=== PATIENT | male | born 1980 | race Caucasian/White ===

== ENCOUNTER 2017-02-11 22:13 | Emergency (ER) | payer MEDICARE ==
[~2017-02-11] VITALS: Ht 182.9 cm; Wt 74.8 kg
--- NOTE | 2017-02-11 22:33 | ED Upper Extremity ---
General Chief Complaint: Upper Extremity Stated Complaint: LEFT HAND PAIN Source: patient Exam Limitations: no limitations History of Present Illness Time seen by provider: 22:20 Initial Comments 36-year-old male who presents with a recheck for his left hand. States he fell a couple weeks ago and that he was told that he needs a routine check on her every 2 weeks. Patient is just traveling through and decided to stop in to the ER to have it checked. He has no other complaints, pain or other concerns. Musculoskeletal: see HPI All Other Systems Reviewed Negative Unless Noted: Yes Past Lodeiyk-Gbsqyf-Zovrxt Hx Patient Social History Recent Foreign Travel: No Contact w/Someone Who Travel: No Reviewed Nursing Assessment Reviewed/Agree w Nursing PMH: Yes Physical Exam Vital Signs Vital Sign - Last 12Hours 02/11/17 22:31 Pulse 76 Resp 14 B/P (MAP) 120/86 Pulse Ox 98 O2 Delivery Room Air Capillary Refill : General Appearance: WD/WN HEENT: PERRL/EOMI Neck: non-tender, full range of motion Cardiovascular: regular rate, rhythm, no edema Respiratory: chest non-tender, lungs clear, normal breath sounds Hand: Left (patient with well healing wounds with some callouses on his left hand, no significant range of motion motion abnormalities with full function and no tendon injuries.) Neurologic/Psychiatric: oriented x 3 Skin: normal color, warm/dry Progress/Results/Core Measures Results/Orders Vital Signs/I&O Vital Sign - Last 12Hours 02/11/17 02/11/17 22:31 22:55 Pulse 76 76 Resp 14 14 B/P (MAP) 120/86 Pulse Ox 98 98 O2 Delivery Room Air Departure Impression Impression: Primary Impression: Left hand pain Disposition: 01 HOME, SELF-CARE Condition: Stable Departure-Patient Inst. Referrals: NO,LOCAL PHYSICIAN (PCP/Family) Primary Care Physician Patient Instructions: Hand Pain (DC) LY DE LA VEGA DO Feb 11, 2017 22:32
[2017-02-11 22:55] VITALS: BP 120/86
== END 2017-02-11 22:55 | disposition home or self-care (01) ==
LOC: ER 22:19
DX: M79.602 Pain in left arm (principal)
CPT/HCPCS: 99282